=== PATIENT | male | born 1990 | race Two or more races ===

== ENCOUNTER 2016-07-22 19:52 | Emergency (ER) | payer OTHER ==
[2016-07-22 20:13] VITALS: RESP 18; TEMP 98.8; O2SAT 95
--- NOTE | 2016-07-22 20:23 | UCPHY ---
H & P Time Seen by Provider: 07/22/16 20:04 Patient Type: New HPI/ROS: This patient is a 3 day history of nasal congestion and dry intermittent cough. He has bilateral ear pain right more than left. The ear pain is mild to moderate. He also has mild sinus pressure in the frontal region. He has associated subjective low-grade fevers. He reports that the cough is occasionally productive. No exacerbating or relieving factors are noted. ROS: No high fevers. No significant fatigue. HEENT: No significant sore throat. No dysphonia. Pulmonary: No pleuritic pain or dyspnea. Cardiovascular : No leg swelling or pain. GI: No vomiting. 7 point ROS is otherwise negative. Social History: Occasional alcohol Smoking Status: Light smoker Physical Exam: Physical Exam Vital signs are normal. General: No acute distress HEENT: Nose: Clear discharge bilaterally. No sinus tenderness to percussion. Ears: Right external canals clear right TM is clear with a clear effusion left external canal and TM are normal Oropharynx: No erythema or exudates. No dysphonia. No drooling or stridor. Eyes: Pupils equal and react to light. Extraocular motions are intact. Lungs: Clear to auscultation bilaterally with no rales, rhonchi or wheeze. No respiratory distress. Cardiac: Regular rate and rhythm with no murmur gallop or rub Skin: No rash or pallor. Neuro: Alert with no focal deficits noted. Initial differential diagnosis: Serous otitis, URI with cough, doubt bronchitis. Constitutional: Initial Vital Signs Temperature (C) 37.1 C 07/22/16 20:06 Heart Rate 85 07/22/16 20:06 Respiratory Rate 18 07/22/16 20:06 Blood Pressure 113/78 07/22/16 20:06 O2 Sat (%) 95 07/22/16 20:06 O2 Delivery Mode Room Air Allergies/Adverse Reactions: Sulfa (Sulfonamide Antibiotics) Allergy (Verified 07/22/16 20:04) Home Medications: Medication Instructions Recorded Albuterol Hfa Anes Only [Proair 2 puffs IH Q4 PRN #1 mdi 07/22/16 Hfa Icu (*)] Citalopram 07/22/16 Fluticasone Hfa 220 Mcg [Flovent 2 puffs IH DAILY #1 mdi 07/22/16 220 MCG Hfa MDI (*)] Guaifenesin/Codeine Phosphate 5 - 10 ml PO Q6 PRN #120 ml 07/22/16 [Guaifenesin-Codeine Liquid] MDM/Departure - [facility] ED Course/Re-evaluation: Given patient's history of reactive airway disease well cover him with a Flovent inhaler. - Depart Disposition: Home, Routine, Self-Care Clinical Impression: Serous otitis media Qualifiers: Laterality: right Chronicity: acute Recurrence: not specified as recurrent Qualified Code(s): H65.01 - Acute serous otitis media, right ear Upper respiratory infection Qualifiers: URI type: unspecified viral URI Qualified Code(s): J06.9 - Acute upper respiratory infection, unspecified Reactive airway disease Qualifiers: Asthma severity: mild intermittent Asthma complication type: uncomplicated Qualified Code(s): J45.20 - Mild intermittent asthma, uncomplicated Condition: Good Instructions: Reactive Airways Disease (ED), Serous Otitis Media (ED) Additional Instructions: Diagnoses: 1. Viral upper respiratory infection 2. Serous otitis 3. Reactive airway disease Plan: Humidifier Guaifenesin Guaifenesin with codeine for cough prevents sleep at night [id number] Flonase steroid nasal spray Ibuprofen Tylenol for discomfort as needed Flovent steroid inhaler for cough, albuterol inhaler with spacer for cough wheeze or shortness of breath Rest for a day or 2. Return for any significant worsening despite treatment plan Typically your symptoms should improve over the next 3-7 days or so Stand Alone Forms: Work Excuse Prescriptions: Albuterol Hfa Anes Only [Proair Hfa Icu (*)] 2 puffs IH Q4 PRN #1 mdi PRN Reason: Wheezing Fluticasone Hfa 220 Mcg [Flovent 220 MCG Hfa MDI (*)] 2 puffs IH DAILY #1 mdi Guaifenesin/Codeine Phosphate [Guaifenesin-Codeine Liquid] 5 - 10 ml PO Q6 PRN # 120 ml PRN Reason: Cough Referrals: Mercy Latif MD [Medical Doctor] - As per Instructions - PQRS PQRS Measurement: NA
[2016-07-22 20:40] VITALS: BP 115/74; PULSE 72
== END 2016-07-22 20:37 | disposition home or self-care (01) ==
LOC: CED 19:52
DX: H65.01 Acute serous otitis media, right ear (principal); J06.9 Acute upper respiratory infection, unspecified; J45.20 Mild intermittent asthma, uncomplicated
CPT/HCPCS: G0463-PO